=== PATIENT | female | born 1960 | race Caucasian/White ===

== ENCOUNTER 2019-09-14 13:51 | Emergency (ER) | payer OTHER ==
[~2019-09-14] VITALS: Ht 157.5 cm; Wt 64.0 kg
[~2019-09-14 13:51] MED LIST: BACL20TA PO; BELI400V IV; HYDR-4100 PO; LORA-259 PO; METO25TA3 PO; PARO-41 PO; ZOLP10TA2 PO
[2019-09-14 13:58] VITALS: BP_SYST 133
--- NOTE | 2019-09-14 14:08 | NUR ---
Patient to ER bed 06 to gown for evaluation. Side rails up.
--- NOTE | 2019-09-14 14:10 | NUR ---
Patient arrived in the the ED c/o lower abdominal pain, BLE pain, unplanned weight loss and diarrhea that started a couple of days ago. Patient denied any chest pain or shortness of breath. Denied any fevers, chills, nausea or vomiting. Patient is alert and oriented x4, respirations even and unlabored, speaking in full sentences, ambulating with a steady gait. VSS, pain level 4/10. Informed of the approximate wait time. Instructed to notify ED staff for any changes in condition or worsening of symptoms. Patient verbalized understanding.
--- NOTE | 2019-09-14 14:32 | NUR ---
ER Dr. Broussard at bedside examining patient.
[2019-09-14] MEDS ORDERED: methylPREDNISolone SOD SUCC/PF 62.5 MG/ML VIAL IVP ONE (15:00)
[2019-09-14 15:06] LABS: BILIRUBIN,URINE NEGATIVE (NEGATIVE); CLARITY/URINE CLEAR (CLEAR); COLOR,URINE YELLOW (YELLOW); GLUCOSE,URINE NEGATIVE (NEGATIVE); KETONES,URINE NEGATIVE (NEGATIVE); LEUKOCYTE ESTERASE ,URINE NEGATIVE (NEGATIVE); NITRITE, URINE NEGATIVE (NEGATIVE); PROTEIN URINE NEGATIVE (NEGATIVE); UROBILINOGEN,URINE 0.2 (0.2-1.0)
[2019-09-14 15:08] LABS: BLOOD, URINE TRACE (NEGATIVE)
[2019-09-14 15:21] LABS: BACTERIA,URINE FEW /HPF (None Seen); MUCUS,URINE None Seen /LPF (None Seen); RBC,URINE 0-3 /HPF (0-3); WBC,URINE 0-3 /HPF (0-3)
--- NOTE | 2019-09-14 15:22 | NUR ---
Por cath accesed on R chest using sterile technique, blood returned noted, no redness /drainage noted at the site. procedure well tolerated.
[2019-09-14 15:26] LABS: BASOPHILS # (AUTO) 0.1 K/uL (0.0-0.2); BASOPHILS % (AUTO) 1.3 % (0.0-2.0); EOSINOPHILS # (AUTO) 0.1 K/uL (0.0-0.4); EOSINOPHILS % (AUTO) 0.8 % (0.0-4.0); HEMATOCRIT 43.6 % (36-48); HEMOGLOBIN 14.5 g/dL (12.0-16.0); LYMPHOCYTES # (AUTO) 1.8 K/uL (1.0-5.5); LYMPHOCYTES % (AUTO) 26.4 % (20.5-51.5); MEAN CORPUSCULAR HEMOGLOBIN 31 pg (27-31); MEAN CORPUSCULAR HGB CONC 33 % (32-36); MEAN CORPUSCULAR VOLUME 92 fL (79.0-98.0); MONOCYTES # (AUTO) 0.6 K/uL (0.0-1.0); MONOCYTES % (AUTO) 8.5 % (1.7-9.3); NEUTROPHILS # (AUTO) 4.2 K/uL (1.8-7.7); PLATELET COUNT (AUTO) 191 K/uL (130-430); RED BLOOD CELL COUNT(AUTO) 4.74 MIL/uL (4.2-6.2); RED CELL DISTRIBUTION WIDTH 13.2 % (9.0-15.0); WHITE BLOOD COUNT (AUTO) 6.7 K/uL (4.8-10.8)
--- NOTE | 2019-09-14 15:32 | NUR ---
Administered Solumedrol IVP as ordered by Dr. Mike. Patient tolerated the medication well. See eMAR for details.
--- NOTE | 2019-09-14 15:37 | NUR ---
Administered Toradol IVP as ordered by Dr. Mike. Patient tolerated the medication well. See eMAR for details.
[2019-09-14 15:39] LABS: CALCIUM 9.6 mg/dL (8.4-11.0); CREATININE 0.63 mg/dL (0.55-1.30); POTASSIUM 4.4 mmol/L (3.5-5.1)
[2019-09-14 15:45] LABS: ALBUMIN 4.3 g/dL (3.4-4.8); TOTAL BILIRUBIN 0.4 mg/dL (0.0-1.0)
[2019-09-14] MEDS ORDERED: KETOROLAC TROMETHAMINE 15 MG VIAL IVP ONE (15:45)
[2019-09-14] MEDS ORDERED: KETOROLAC TROMETHAMINE 15 MG VIAL ONE (15:49)
--- NOTE | 2019-09-14 16:20 | NUR ---
Notified MD that patient's still having a 10/10 pain. acknowledged.
--- NOTE | 2019-09-14 17:15 | NUR ---
Patient is resting in bed, still in pain, denied any respiratory distress at this time. Pain level 10/10. MD made aware. Awaiting orders.
[2019-09-14] MEDS ORDERED: DIAZEPAM 5 MG TABLET (VALIUM) PO ONE (17:45)
--- NOTE | 2019-09-14 17:47 | NUR ---
Administered Valium PO as ordered by Dr. Mike. Patient tolerated the medication well. See eMAR for details.
--- NOTE | 2019-09-14 18:15 | NUR ---
Patient given written and verbal discharge instructions and verbalizes understanding. ER MD discussed with patient the results and treatment provided. Patient in stable condition. ID arm band removed. IV catheter removed intact and dressing applied, no active bleeding. Rx of Prednisone and Ibuprofen given. Patient educated on pain management and to follow up with PMD. Pain Scale 0/10. Opportunity for questions provided and answered. Medication side effect fact sheet provided.
[2019-09-14 18:16] VITALS: BP_SYST 127
== END 2019-09-14 18:16 | disposition home or self-care (01) ==
LOC: SED 13:51
DX: L93.0 Discoid lupus erythematosus (principal); Z86.73 Personal history of transient ischemic attack (TIA), and cerebral infarction without residual deficits; Z87.01 Personal history of pneumonia (recurrent); Z79.899 Other long term (current) drug therapy; Z88.8 Allergy status to other drugs, medicaments and biological substances
CPT/HCPCS: 36415; 71045; 80053; 81000; 85025; 96374; 96375; 99284; J1885; J2930

== ENCOUNTER 2019-12-07 01:22 | Emergency (ER) | payer OTHER ==
[~2019-12-07] VITALS: Ht 157.5 cm; Wt 65.8 kg
[2019-12-07 01:30] VITALS: BP_SYST 118
[2019-12-07] MEDS ORDERED: KETOROLAC TROMETHAMINE 60 MG/2 ML VIAL IM ONE (01:45)
[2019-12-07] MEDS ORDERED: MORPHINE 4 MG/ML INJ. SYRINGE IM ONE ×2 (02:00→03:45)
[2019-12-07 04:20] VITALS: BP_SYST 118
== END 2019-12-07 04:20 | disposition home or self-care (01) ==
LOC: SED 01:22
DX: M54.31 Sciatica, right side (principal); Z87.01 Personal history of pneumonia (recurrent); Z79.899 Other long term (current) drug therapy; Z86.73 Personal history of transient ischemic attack (TIA), and cerebral infarction without residual deficits; Z88.8 Allergy status to other drugs, medicaments and biological substances
CPT/HCPCS: 96372; 99284; J1885; J2270

== ENCOUNTER 2020-03-01 15:57 | Emergency (ER) | payer OTHER ==
[~2020-03-01] VITALS: Ht 157.5 cm; Wt 65.8 kg
[2020-03-01 16:00] VITALS: BP_SYST 154
--- NOTE | 2020-03-01 16:00 | NUR ---
Placed in room 03 . Placed on shell reprint operator, blood pressure machine and pulse oximeter. To gown for exam. Side rails up.
[2020-03-01 17:07] LABS: BASOPHILS % (AUTO) 0.1 % (0.0-2.0); HEMATOCRIT 43.7 % (36-48); HEMOGLOBIN 14.4 g/dL (12.0-16.0); LYMPHOCYTES # (AUTO) 0.9 K/uL (1.0-5.5); LYMPHOCYTES % (AUTO) 6.9 % (20.5-51.5); MEAN CORPUSCULAR HEMOGLOBIN 31 pg (27-31); MEAN CORPUSCULAR HGB CONC 33 % (32-36); MEAN CORPUSCULAR VOLUME 93 fL (79.0-98.0); MONOCYTES # (AUTO) 0.4 K/uL (0.0-1.0); NEUTROPHILS # (AUTO) 11.9 K/uL (1.8-7.7); PLATELET COUNT (AUTO) 254 K/uL (130-430); RED BLOOD CELL COUNT(AUTO) 4.72 MIL/uL (4.2-6.2); RED CELL DISTRIBUTION WIDTH 12.9 % (9.0-15.0); WHITE BLOOD COUNT (AUTO) 13.2 K/uL (4.8-10.8)
[2020-03-01 17:28] LABS: ANION GAP 10 (5-15); CALCIUM 10.2 mg/dL (8.4-11.0); CHLORIDE 93 mmol/L (98-107); GFR AFRICAN AMERICAN 95 mL/min (>90); GLUCOSE 159 mg/dL (70-99); POTASSIUM 4.2 mmol/L (3.5-5.1); SODIUM SERUM 128 mmol/L (136-145); TOTAL BILIRUBIN 0.3 mg/dL (0.0-1.0); UREA NITROGEN, BLOOD 18 mg/dL (8-21)
[2020-03-01 17:29] LABS: ALANINE AMINOTRANSFERASE 28 U/L (12-78); ALBUMIN 4.2 g/dL (3.4-4.8); ASPARTATE AMINOTRANSFERASE 14 U/L (10-37)
[2020-03-01] MEDS ORDERED: NACL 0.9% 1,000 ML IV ONE (17:45)
--- NOTE | 2020-03-01 17:45 | NUR ---
Patient arrived in the ED c/o generalized weakness and bodyaches since Monday. Denied any fevers, chills, nausea or vomiting. Patient is alert and oriented x4, respirations even and unlabored, speaking in full sentences, and ambulating with a steady gait. VSS, pain level 10/10. Informed of the approximate wait time. Instructed to notify ED staff for any changes in condition or worsening of symptoms while waiting to be seen by an ED provider. Patient verbalized understanding.
--- NOTE | 2020-03-01 17:47 | NUR ---
ARMAAN Fan at bedside examining patient.
[2020-03-01] MEDS ORDERED: DEXAMETHASONE SOD PHOSPHATE 10 MG/ML VIAL IVP ONE (18:00)
[2020-03-01] MEDS ORDERED: MORPHINE 4 MG/ML INJ. SYRINGE IVP ONE (18:00)
[2020-03-01] MEDS ORDERED: ONDANSETRON HCL 4 MG/2 ML VIAL IVP ONE (18:15)
[2020-03-01 18:31] LABS: BILIRUBIN,URINE NEGATIVE (NEGATIVE); BLOOD, URINE 1+ (NEGATIVE); CLARITY/URINE CLEAR (CLEAR); COLOR,URINE YELLOW (YELLOW); GLUCOSE,URINE NEGATIVE (NEGATIVE); KETONES,URINE NEGATIVE (NEGATIVE); LEUKOCYTE ESTERASE ,URINE NEGATIVE (NEGATIVE); NITRITE, URINE NEGATIVE (NEGATIVE); PROTEIN URINE NEGATIVE (NEGATIVE); UROBILINOGEN,URINE 0.2 (0.2-1.0)
--- NOTE | 2020-03-01 18:40 | NUR ---
Accessed her port on the right side of her breast, flushed without any resistance. Patient tolerated the procedure well. Administered Morphine Sulfate, Zofran, and Dexamethasone IVP as ordered by Dr. Fan. Patient tolerated the medications well. See eMAR for details.
[2020-03-01 18:41] LABS: BACTERIA,URINE RARE /HPF (None Seen); RBC,URINE 0-3 /HPF (0-3); WBC,URINE NONE SEEN /HPF (0-3)
[2020-03-01 19:28] VITALS: BP_SYST 128
--- NOTE | 2020-03-01 19:29 | NUR ---
Patient given written and verbal discharge instructions and verbalizes understanding. ER MD discussed with patient the results and treatment provided. Patient in stable condition. ID arm band removed. [id number] removed intact and dressing applied, no active bleeding. Rx of given. Patient educated on pain management and to follow up with PMD. Pain Scale 0/10. Opportunity for questions provided and answered. Medication side effect fact sheet provided.
== END 2020-03-01 19:29 | disposition home or self-care (01) ==
LOC: SED 15:57
DX: M79.7 Fibromyalgia (principal); E87.1 Hypo-osmolality and hyponatremia; L93.0 Discoid lupus erythematosus; Z88.8 Allergy status to other drugs, medicaments and biological substances; Z79.899 Other long term (current) drug therapy
CPT/HCPCS: 36415; 71045; 80053; 81000; 84484; 85025; 93005; 96374; 96375; 99285; J1100; J2270; J2405; J7030

== ENCOUNTER 2020-04-19 06:00 | Emergency (ER) | payer OTHER ==
[~2020-04-19] VITALS: Ht 157.5 cm; Wt 70.8 kg
[2020-04-19 06:00] VITALS: BP_SYST 104
[2020-04-19] MEDS ORDERED: fentaNYL CITRATE/PF 100 MCG/2 ML AMP IVP ONE (07:30)
[2020-04-19 07:41] LABS: BASOPHILS % (AUTO) 0.3 % (0.0-2.0); EOSINOPHILS # (AUTO) 0.1 K/uL (0.0-0.4); EOSINOPHILS % (AUTO) 1.9 % (0.0-4.0); HEMATOCRIT 36.6 % (36-48); HEMOGLOBIN 12.6 g/dL (12.0-16.0); LYMPHOCYTES # (AUTO) 2.6 K/uL (1.0-5.5); LYMPHOCYTES % (AUTO) 41.8 % (20.5-51.5); MEAN CORPUSCULAR HEMOGLOBIN 31 pg (27-31); MEAN CORPUSCULAR HGB CONC 34 % (32-36); MEAN CORPUSCULAR VOLUME 90 fL (79.0-98.0); MONOCYTES # (AUTO) 0.6 K/uL (0.0-1.0); MONOCYTES % (AUTO) 9.2 % (1.7-9.3); NEUTROPHILS # (AUTO) 2.9 K/uL (1.8-7.7); NEUTROPHILS % (AUTO) 46.8 % (40.0-70.0); PLATELET COUNT (AUTO) 205 K/uL (130-430); RED BLOOD CELL COUNT(AUTO) 4.05 MIL/uL (4.2-6.2); RED CELL DISTRIBUTION WIDTH 12.7 % (9.0-15.0); WHITE BLOOD COUNT (AUTO) 6.1 K/uL (4.8-10.8)
[2020-04-19 07:53] LABS: CALCIUM 9.2 mg/dL (8.4-11.0); CREATININE 0.86 mg/dL (0.55-1.30); POTASSIUM 3.9 mmol/L (3.5-5.1)
[2020-04-19 07:58] LABS: ALBUMIN 3.6 g/dL (3.4-4.8); C-REACTIVE PROTEIN QUANT 0.7 mg/dL (0-0.5); TOTAL BILIRUBIN 0.3 mg/dL (0.0-1.0)
[2020-04-19 08:40] LABS: BILIRUBIN,URINE NEGATIVE (NEGATIVE); CLARITY/URINE CLEAR (CLEAR); COLOR,URINE YELLOW (YELLOW); GLUCOSE,URINE NEGATIVE (NEGATIVE); KETONES,URINE NEGATIVE (NEGATIVE); LEUKOCYTE ESTERASE ,URINE NEGATIVE (NEGATIVE); NITRITE, URINE NEGATIVE (NEGATIVE); PH,URINE 5.5 (5.0-8.0); PROTEIN URINE NEGATIVE (NEGATIVE); UROBILINOGEN,URINE 0.2 (0.2-1.0)
[2020-04-19 08:41] LABS: BLOOD, URINE NEGATIVE (NEGATIVE)
[2020-04-19] MEDS ORDERED: KETOROLAC TROMETHAMINE 30 MG VIAL IVP ONE (08:45)
[2020-04-19] MEDS ORDERED: DIPHENHYDRAMINE INJ 50 MG/ML VIAL IVP ONE (08:45)
[2020-04-19 08:59] VITALS: BP_SYST 104
[2020-04-19 09:10] LABS: ERYTHROCYTE SEDIMENTATION RATE 7 MM/HR (0-20)
[2020-04-20 10:06] LABS: COMPLEMENT C3, SERUM 142 mg/dL (82-167); COMPLEMENT C4, SERUM 26 mg/dL (14-44)
== END 2020-04-19 08:59 | disposition home or self-care (01) ==
LOC: SED 06:00
DX: M79.18 Myalgia, other site (principal); L93.0 Discoid lupus erythematosus; Z79.899 Other long term (current) drug therapy; Z88.5 Allergy status to narcotic agent; Z88.8 Allergy status to other drugs, medicaments and biological substances
CPT/HCPCS: 36415; 80053; 81003; 82550; 85025; 85379; 85651; 86140; 86160 ×2; 86162; 96374; 96375; 99284; J1200; J1885; J3010

== ENCOUNTER 2020-05-04 04:15 | Emergency (ER) | payer OTHER ==
[~2020-05-04] VITALS: Ht 157.5 cm; Wt 66.7 kg
[2020-05-04 04:20] VITALS: BP_SYST 98
[2020-05-04] MEDS ORDERED: methylPREDNISolone SOD SUCC/PF 62.5 MG/ML VIAL IM ONE (04:45)
[2020-05-04] MEDS ORDERED: KETOROLAC TROMETHAMINE 15 MG VIAL IM ONE (04:45)
[2020-05-04] MEDS ORDERED: DIPHENHYDRAMINE HCL 25 MG CAPSULE PO ONE (04:45)
[2020-05-04] MEDS ORDERED: KETOROLAC TROMETHAMINE 15 MG VIAL ONE (05:02)
[2020-05-04] MEDS ORDERED: DIPHENHYDRAMINE HCL 50 MG CAPSULE ONE (05:03)
[2020-05-04] MEDS ORDERED: methylPREDNISolone SOD SUCC/PF 62.5 MG/ML VIAL ONE (05:03)
[2020-05-04 07:09] VITALS: BP_SYST 112
== END 2020-05-04 07:09 | disposition home or self-care (01) ==
LOC: SED 04:15
DX: M79.7 Fibromyalgia (principal); M32.9 Systemic lupus erythematosus, unspecified; Z79.899 Other long term (current) drug therapy; Z88.6 Allergy status to analgesic agent
CPT/HCPCS: 96372; 99284; J1885; J2930; Q0163

== ENCOUNTER 2022-11-19 23:37 | Emergency (ER) | payer OTHER ==
[~2022-11-19] VITALS: Ht 157.5 cm; Wt 71.2 kg
[~2022-11-19 23:37] MED LIST changes: +HYDR-3927 PO; -HYDR-4100 PO
[2022-11-19 23:44] VITALS: BP_SYST 110
[2022-11-20] MEDS ORDERED: KETOROLAC TROMETHAMINE 60 MG/2 ML VIAL IM ONE
[2022-11-20] MEDS ORDERED: ACETAMINOPHEN I.V. 1000 MG 100 ML IV ONE (00:15)
[2022-11-20] MEDS ORDERED: HYDROmorphone 1 MG/ML INJ. CARTRIDGE IVP ONE (00:45)
[2022-11-20] MEDS ORDERED: HYDROmorphone 1 MG/ML INJ. CARTRIDGE IM ONE ×2 (01:15→03:00)
[2022-11-20 05:50] VITALS: BP_SYST 110
== END 2022-11-20 05:50 | disposition home or self-care (01) ==
LOC: SED 23:37
DX: G03.9 Meningitis, unspecified (principal); M79.661 Pain in right lower leg; Z88.6 Allergy status to analgesic agent; Z88.8 Allergy status to other drugs, medicaments and biological substances; Z79.899 Other long term (current) drug therapy
CPT/HCPCS: 99284; 96372; 73552; 73590; J1170; J0131

== ENCOUNTER 2022-11-20 19:46 | Emergency (ER) | payer OTHER ==
[~2022-11-20] VITALS: Ht 160 cm; Wt 77.1 kg
[2022-11-20 20:55] VITALS: BP_SYST 127
[2022-11-20] MEDS ORDERED: OXYCODONE/ACETAMINOPHEN 5-325 TABLET PO ONE (23:00)
--- NOTE | 2022-11-20 23:09 | NUR ---
DR. GRULLON IN TRIAGE ROOM EXAMINING PATIENT
--- NOTE | 2022-11-20 23:20 | NUR ---
ATTEMPTED TO MEDICATE PT PT SHE STATED SHE TOOK THE SAME MED AT 1999 AND IT WAS NOT EFFECTIVE. PT REFUSED MED AND REFUSED DISCHARGE. CHARGE NURSE AND MD INFORMED.
--- NOTE | 2022-11-20 23:37 | NUR ---
Note charone in EDM - 11/21/22 at 0036 by [email or web address] PATIENT YELLING AND SCREAMING STATING SHE IS IN PAIN. DEMANDING PAIN MEDICATIONS. PATIENT STATES THAT SHE DOES NOT SEE A PAIN MANAGEMENT DRTrever AND PERCOCET DOES NOT WORK FOR HER. SHE DEMANDS SOMEONE ACCESS HER PORT TO HER IV PAIN MEDICATION. PATIENT STATES HER LEGS ARE MORE SWOLLEN TODAY THEN THEY WERE YESTERDAY. NOTIFIED ORDER FOR ULTRASOUND ORDERED.
--- NOTE | 2022-11-20 23:37 | NUR ---
SPOKE TO PATIENT IN TRIAGE ROOM. ATTEMPTED TO PERFORM AN ASSESSMENT ON PATIENT. PATIENT IS YELLING AND SCREAMING STATING SHE IS IN PAIN. DEMANDING PAIN MEDICATIONS. PATIENT REPORTS WAS SEEN YESTERDAY AND SHE REQUESTED SOMEONE TO ACCESS HER PORT TO GIVE HER PAIN MEDICATION BUT WAS NOT GIVEN MEDICATION THROUGH HER IV. PATIENT REPORTS THAT SHE RECEIVED 2 IM INJECTIONS BUT DOES NOT KNOW WHAT MEDICATIONS SHE WAS GIVEN AND WAS DISCHARGED THIS MORNING STILL HAVING PAIN. KINZA ORDERED PERCOCET PO FOR PATIENT AND PATIENT IS REFUSING PAIN MEDICATION BECAUSE SHE STATES IT DOES NOT WORK. PATIENT STATES "I DON'T WANT PERCOCET GIVE ME MORPHINE THROUGH MY PORT BUT YOU WILL HAVE TO GIVE ME BENADRYL ALSO." PATIENT STATES THAT SHE DOES NOT SEE A PAIN MANAGEMENT DR. AND PERCOCET DOES NOT WORK FOR HER. SHE DEMANDS SOMEONE ACCESS HER PORT TO HER IV PAIN MEDICATION. ATTEMPTED TO REDIRECT PATIENT MULTIPLE TIMES BUT PATIENT DEMANDING PAIN MEDICATION. PATIENT STATES HER LEGS ARE MORE SWOLLEN TODAY THEN THEY WERE YESTERDAY. NOTIFIED ORDER FOR ULTRASOUND ORDERED. THIS RN RETURNED TO TRIAGE AND INFORMED PATIENT THAT MD ORDERED ULTRASOUND OF HER LEGS. PATIENT INFORMED OF WAIT FOR ULTRASOUND AND AGAIN OFFERED PAIN MEDICATION. PATIENT REFUSED. MD NOTIFIED
--- NOTE | 2022-11-21 00:39 | NUR ---
SOAKING PITS SUPERVISOR HERE FOR EVALUATION. PT INITIALLY STATED SHE WOULD NOT TAKE PART IN EXAM BUT EVENTULLY ALLOWED TEST.
--- NOTE | 2022-11-21 01:40 | NUR ---
ACCOMPANIED BY DR. GRULLON TO SPEAK WITH PATIENT. PATIENT NOW REPORTS SHE IS HAVING URINARY RETENTION. DR GRULLON PLACED NEW ORDERS.
--- NOTE | 2022-11-21 01:50 | NUR ---
Patient to ER bed 02 to gown.
--- NOTE | 2022-11-21 02:13 | NUR ---
# 16 FR Harris catheter with use of sterile technique. Immediate return of 450 cc CLEAR YELLOW urine noted. Bedside drainage bag placed below level of bladder. Urine sample collected and sent to lab. Pt tolerated procedure WELL Patient unable to toilet self.
--- NOTE | 2022-11-21 04:17 | NUR ---
Pt is sleeping with no S/S off distress. Pt care continue.
[2022-11-21 04:59] VITALS: BP_SYST 132
--- NOTE | 2022-11-21 05:04 | NUR ---
Pt is discharge to home since 19 but was sleeping and allowed to continue to sleeping until now that she is awake with all discharge instruction given and Harris Cath discontinue as she is stable.
== END 2022-11-21 04:55 | disposition home or self-care (01) ==
LOC: SED 19:46
DX: F11.20 Opioid dependence, uncomplicated (principal); R33.9 Retention of urine, unspecified; M79.661 Pain in right lower leg; M54.50 Low back pain, unspecified; Z88.6 Allergy status to analgesic agent; Z88.8 Allergy status to other drugs, medicaments and biological substances; Z79.899 Other long term (current) drug therapy
CPT/HCPCS: 93970; 99284